=== PATIENT | male | born 1940 | race Caucasian/White ===

== ENCOUNTER 2019-06-25 05:18 | Day surgery (SDC) | payer MEDICARE, BC ==
[2019-06-24 12:47] LABS: ALBUMIN 4.1 G/DL (3.4-5.0); ANION GAP 9 (8-16); BLOOD UREA NITROGEN 17 MG/DL (7-18); BUN/CREATININE RATIO 14.4 (5.4-32.0); CALCIUM 9.4 MG/DL (8.5-10.1); CHLORIDE 104 MMOL/L (99-107); CREATININE 1.18 MG/DL (0.60-1.10); GLUCOSE 93 MG/DL (70-104); POTASSIUM 4.2 MMOL/L (3.5-5.1); SODIUM 143 MMOL/L (135-145); TOTAL CARBON DIOXIDE 30.2 MMOL/L (24-32); eGFR 60 ML/MIN
[2019-06-24 12:52] LABS: BASOPHILS % (AUTO) 0.4 % (0-1); EOSINOPHILS # (AUTO) 0.1 X10'3 (0-0.9); HEMATOCRIT 44.5 % (42.0-52.0); HEMOGLOBIN 15.1 g/dl (14.0-17.9); LYMPHOCYTES # (AUTO) 1.6 X10'3 (1.1-4.8); LYMPHOCYTES % (AUTO) 24.1 % (21-51); MEAN CORPUSCULAR HEMOGLOBIN 30.7 PG (27.0-31.0); MEAN CORPUSCULAR HGB CONC 33.8 g/dL (33.0-36.5); MEAN CORPUSCULAR VOLUME 90.8 FL (78-98); MEAN PLATELET VOLUME 8.7 FL (7.4-10.4); MONOCYTES # (AUTO) 0.6 X10'3 (0-0.9); MONOCYTES % (AUTO) 8.9 % (2-12); NEUTROPHILS # (AUTO) 4.3 X10'3 (1.8-7.7); NEUTROPHILS % (AUTO) 65.6 % (42-75); PLATELET COUNT 184 X10'3 (140-440); WHITE BLOOD COUNT 6.5 X10'3 (4.5-11.0)
[2019-06-24 13:23] LABS: PARTIAL THROMBOPLASTIN TIME 29 SECONDS (22-32)
[2019-06-25] VITALS (12 sets, daily range): BP systolic 118–164; BP diastolic 32–108
[~2019-06-25] VITALS: Ht 177.8 cm; Wt 89.1 kg
[~2019-06-25 05:18] MED LIST: ASPI-1265 PO; ATOR20TA66 PO; FLO0.4C PO; LEVO150T8 PO; METO50TA7 PO
[2019-06-25] MEDS ORDERED: LORazepam 0.5 MG tablet PO PRN (05:55)
[2019-06-25] MEDS ORDERED: sodium bicarbonate inj. 75 ML in dextrose 5% water 500ml 500 ML IV ONE (05:55)
[2019-06-25] MEDS ORDERED: diphenhydrAMINE 25mg capsule PO PRN (05:55)
[2019-06-25] MEDS ORDERED: LIDOcaine/PRILOcaine 5gm cream TP ONE (06:00)
[2019-06-25] MEDS ORDERED: acetylcysteine 200 MG/ml 4ml vial PO PRN (06:00)
[2019-06-25] MEDS ORDERED: FERR-119 (06:04)
[2019-06-25] MEDS ORDERED: ASCO10007 (06:04)
[2019-06-25] MEDS ORDERED: CHOL2000 PO (06:04)
[2019-06-25] MEDS ORDERED: OMEG-182 (06:04)
[2019-06-25] MEDS ORDERED: VITA0.4T7 PO (06:04)
[2019-06-25] MEDS ORDERED: UBID100C45 PO (06:04)
[2019-06-25] MEDS ORDERED: nitroGLYCERIN-Tridil 50MG/D5W 250 ML IV ONE (06:39)
[2019-06-25] MEDS ORDERED: verapamil 2.5 mg/ml inj IV ONE (06:39)
[2019-06-25] MEDS ORDERED: LIDOcaine 1% (10mg/ml)w/preservative injection 20ml MDV ONE (06:39)
[2019-06-25] MEDS ORDERED: heparin 1,000unit/ml 10ml vial 10 ML ONE (06:39)
[2019-06-25] MEDS ORDERED: iohexol 350 MG/ML 50ML vial IV ONE ×2 (06:40→07:47)
[2019-06-25] MEDS ORDERED: iohexol 350MG/ML 100ml bottle IV ONE ×2 (06:40→07:49)
[2019-06-25] MEDS ORDERED: midazolam 2 mg/2 ml injection ONE (07:15)
[2019-06-25] MEDS ORDERED: fentaNYL/PF 50MCG/1 ML 2ML syringe ONE (07:15)
[2019-06-25] MEDS ORDERED: normal saline 1000ml 1,000 ML IV SCH (08:55)
[2019-06-25 11:21] LABS: ISTAT Hct MIX 40 %PCV (42-52); ISTAT O2 SATURATION MIX VENOUS 65 % (60-80); ISTAT SOURCE MIX
[2019-06-25 11:21] LABS: ISTAT HGB ART 13.6 g/dl (14.0-18.0); ISTAT Hct ART 40 %PCV (42-52); ISTAT O2 SATURATION ARTERIAL 93 % (95-98); ISTAT SOURCE ART
== END 2019-06-25 14:20 | disposition home or self-care (01) ==
LOC: SSTAY O 05:18
PROVIDERS: ATTEND Internal Medicine Cardiovascular Disease
DX: I25.10 Atherosclerotic heart disease of native coronary artery without angina pectoris (principal); I10 Essential (primary) hypertension; E78.5 Hyperlipidemia, unspecified; I25.2 Old myocardial infarction; F41.9 Anxiety disorder, unspecified; E03.9 Hypothyroidism, unspecified; G47.33 Obstructive sleep apnea (adult) (pediatric); D64.9 Anemia, unspecified; Z98.41 Cataract extraction status, right eye; Z98.42 Cataract extraction status, left eye; Z98.890 Other specified postprocedural states; Z88.5 Allergy status to narcotic agent; Z95.5 Presence of coronary angioplasty implant and graft; Z79.899 Other long term (current) drug therapy
CPT/HCPCS: 36415; 80048; 82803; 85014; 85025; 85610; 85730; 93005; 93460; 93567; 99152; 99153; C1769; J1644; J2001; J2250; J3010; J7030; Q0163; Q9967; A4620; A6258; J3490

== ENCOUNTER 2025-06-08 10:07 | Day surgery (SDC) | payer MEDICARE, BC ==
[~2025-06-08] VITALS: Ht 177.8 cm; Wt 81.1 kg
[2025-06-08] VITALS (16 sets, daily range): BP systolic 132–189; BP diastolic 56–85; PULSE 57–70; RESP 12–24; TEMP 97.8; O2SAT 95–100
[~2025-06-08 10:07] MED LIST changes: +ASCO100031; +CHOL2000 PO; +FERR-119; -FLO0.4C PO; +OMEG-182; +TAMS-55 PO; +UBID100C45 PO; +VITA0.4T7 PO
[2025-06-08] MEDS ORDERED: LEVO125T8 (12:17)
[2025-06-08] MEDS ORDERED: LOSA50TA64 PO (12:17)
[2025-06-08] MEDS ORDERED: LABE300T4 PO (12:17)
[2025-06-08] MEDS ORDERED: fentaNYL/PF 50MCG/1 ML 2ML syringe ONE (13:37)
[2025-06-08] MEDS ORDERED: MIDAZolam 1 MG/ML 5ML VIAL ONE ×2 (13:37)
== END 2025-06-08 15:17 | disposition home or self-care (01) ==
LOC: OR 10:07
PROVIDERS: ATTEND Internal Medicine Gastroenterology
DX: R19.4 Change in bowel habit (principal); K57.30 Diverticulosis of large intestine without perforation or abscess without bleeding; Z98.0 Intestinal bypass and anastomosis status
CPT/HCPCS: 45378; 82948; A4620; G0500; J2250; J3010; J7040; Z7512; Z7610; 99152